=== PATIENT | male | born 1955 | race Caucasian/White ===

== ENCOUNTER → 2021-11-27 | Outpatient (CLI) | payer MEDICARE, OTHER ==
[~2021-11-27] MED LIST: ASPIR 8181 MG PO; COREG25 M1 PO; CRESTOR20 MG PO; NORCO 5-325 TA1 EAC1 PO
== END ==
LOC: M.LAB 08:36
PROVIDERS: ATTEND Internal Medicine Gastroenterology
DX: Z01.812 Encounter for preprocedural laboratory examination (principal); Z20.822 Contact with and (suspected) exposure to COVID-19